=== PATIENT | female | born 1975 | race African-American/Black ===

== ENCOUNTER 2017-02-01 23:00 | Emergency (ER) | payer OTHER, SELFPAY ==
[2017-02-01] MEDS ORDERED: Ketorolac Tromethamine 30 MG/ML VIAL ONE (23:40)
--- NOTE | 2017-02-01 23:40 | RAD ---
CHEST TWO VIEWS 02/01/17 HISTORY: Chest pain. COMPARISON: None. FINDINGS: Lungs are clear. No pneumothorax or effusion. The cardiac silhouette and mediastinal contour is shahida l. IMPRESSION: No acute intrathoracic abnormality. POS: [facility]
== END 2017-02-02 00:06 | disposition home or self-care (01) ==
LOC: SCSER 23:00
DX: R07.89 Other chest pain (principal); I10 Essential (primary) hypertension; Z79.899 Other long term (current) drug therapy
CPT/HCPCS: 71020; 93005; 96372; J1885

== ENCOUNTER 2020-10-03 13:43 | Emergency (ER) | payer OTHER | END 2020-10-03 15:10 | disposition home or self-care (01) | LOC: ERS 13:43 | DX: I88.9 Nonspecific lymphadenitis, unspecified (principal); I10 Essential (primary) hypertension; Z79.899 Other long term (current) drug therapy | CPT/HCPCS: 99282 ==